=== PATIENT | female | born 1940 | race Caucasian/White ===

== ENCOUNTER → 2016-05-06 17:17 | Outpatient (CLI) | payer MEDICARE, MEDICAID | END | disposition home or self-care (01) | LOC: D.MAMMO 14:00 | DX: N63 Unspecified lump in breast (principal) ==

== ENCOUNTER → 2016-08-03 19:57 | Outpatient (CLI) | payer MEDICARE, MEDICAID | END | disposition home or self-care (01) | LOC: D.LABREF 19:57 | DX: R60.0 Localized edema (principal); R39.9 Unspecified symptoms and signs involving the genitourinary system ==

== ENCOUNTER 2017-08-24 10:50 | Outpatient (CLI) | payer OTHER ==
[~2017-08-24] VITALS: Ht 160 cm; Wt 81.8 kg
--- NOTE | ~2017-08-24 | HEMODYNAMI ---
PATIENT:MARY CHAVEZ MEDICAL RECORD: [id number] : 38 LOCATION:[facility] ADMISSION DATE: 08/24/17 Generatedon:08/24/201714:08 Patient name: MARY CHAVEZ Patient #: [id number] SSN: : Date of study: 08/24/2017 Page: Of Hemodynamic Procedure Report Patient Data Patient Demographics Procedure consent was obtained First Name: MARY Gender: Female Last Name: KATHY : 1940 [facility] Initial: CAROL Age: 77 year(s) Patient #: [id number] Race: Unknown Additional ID: [id number] Contact details Address: [address] State: [place] City: [facility] [place] Zip code: [address] Past Medical History Allergies Allergen Reaction Date Comments Reported Iodine 08/24/2017 Penicillins 08/24/2017 Codeine 08/24/2017 Sulfa drugs 08/24/2017 Aspirin 08/24/2017 Statins 08/24/2017 NSAIDs 08/24/2017 Admission Admission Data Admission Date: 08/24/2017 Admission Time: 10:50 Procedure Procedure Types Cath Procedure Peripheral Cath Diagnostic Procedure Cath Peripheral Ylirv-Purgyki-Aod-Off Procedure Description Procedure Date Procedure Date: 08/24/2017 Procedure Start Time: 13:50 Procedure End Time: 14:07 Procedure Staff Name Function Tree De Oliveira RT Scrub Cecil León MD Performing Physician Sanford Fernandes RN Nurse Crystal Moreira RT Monitor Procedure Data Cath Procedure Fluoroscopy Diagnostic fluoroscopy Total fluoroscopy Time: 0.8 time: 0.8 min min Diagnostic fluoroscopy Total fluoroscopy dose: 114 dose: 114 mGy mGy Contrast Material Contrast Material Type Amount (ml) Isovue 370 63 Entry Location Entry Primary Successful Side Size Upsize Upsize Entry Closure Succes sful Closure Location (Fr) 1 (Fr) 2 (Fr) Remarks Device Remarks Femoral Left 5 Fr Exoseal artery Estimated blood loss: 5 ml Diagnostic catheters Device Type Used For End Catheter Placement DIAGNOSTIC UF 5Fr Abdominal catheter ([id number]) aortogram with runoff Procedure Complications No complications Procedure Medications Medication Administration Route Dosage Oxygen etCO2 Nasal cannula 2 l/min Heparin Flush Bag added to field 2 bags (1000units/500ml NS) 0.9% NaCl I.V. 100 ml/hr Fentanyl I.V. 50 mcg Versed I.V. 1 mg Fentanyl I.V. 50 mcg Versed I.V. 1 mg Fentanyl I.V. 50 mcg Hemodynamics Rest Heart Rate: 81 (bpm) Snapshots Pre Cath Intra NCS Post Cath Vital Signs Time Heart Resp SPO2 etCO2 NIBP (mmHg) Rhythm Pain Sedation Rate (ipm) (%) (mmHg) Status Level (bpm) 13:30:20 87 16 98 29.2 151/82(125) NSR 0 (11) 10(A) , No pain 13:34:30 85 16 97 29.9 137/83(122) NSR 0 (11) 10(A) , No pain 13:38:45 88 17 96 29.9 132/72(107) NSR 0 (11) 10(A) , No pain 13:42:56 90 17 93 33.7 125/72(100) NSR 0 (11) 10(A) , No pain 13:47:06 93 18 95 23.9 127/72(93) NSR 0 (11) 10(A) , No pain 13:51:16 92 16 95 37.4 141/76(115) NSR 0 (11) 9(A) , No pain 13:55:28 90 17 95 40.4 128/74(107) NSR 0 (11) 9(A) , No pain 13:59:38 92 16 91 41.9 135/77(100) NSR 0 (11) 9(A) , No pain 14:03:50 96 17 95 38.2 128/70(95) NSR 0 (11) 10(A) , No pain 14:05:40 95 16 98 26.2 132/72(105) NSR 0 (11) 10(A) , No pain Medications Time Medication Route Dose Verified Delivered Reason Notes Effe ctiveness by by 13:40:26 Oxygen etCO2 2 Cecil Sanford Per Nasal l/min Mau Fernandes RN physician cannula 13:40:36 Heparin Flush added 2 Cecil Sanford used for Bag to bags Mau Fernandes sleeve ironer (1000units/500ml field NS) 13:40:45 0.9% NaCl I.V. 100 Cecil Sanford Per ml/hr Mau Fernandes RN physician 13:49:01 Fentanyl I.V. 50 Cecil Sanford for [facility] Mau Fernandes RN sedation 13:49:08 Versed I.V. 1 mg Cecil Sanford for Mau Fernandes RN sedation 13:51:06 Fentanyl I.V. 50 Cecil Sanford for [facility] Mau Fernandes RN sedation 13:51:11 Versed I.V. 1 mg Cecil Sanford for Mau Fernandes RN sedation 13:56:16 Fentanyl I.V. 50 Cecil Sanford for [facility] Mau Fernandes RN sedation Procedure Log Time Note 13:11:16 Sanford Fernandes RN sent for patient. Start room use. 13:11:17 Time tracking: Regular hours (M-F 7:00 - 5:00) 13:11:22 Plan of Care:Hemodynamics will remain stable., Cardiac rhythm will remain stable., Comfort level will be maintained., Respiratory function will remain adequate., Patient/ family verbilizes understanding of procedure., Procedure tolerated without complication., Recovers from procedure without complications.. 13:29:04 Patient received from Pre/Post Procedure Room to [facility] 2 Alert and oriented. Tansferred to table in Supine position. 13:29:07 Warm blankets applied, and quincy hugger turned on for patient comfort. 13:29:09 Correct patient and procedure confirmed by team. 13:29:12 Signed procedure consent form obtained from patient. 13:29:14 ECG and BP/O2 sat monitors applied to patient. 13:29:16 Vital chart was started 13:34:12 Full Disclosure recording started 13:36:03 Rhythm: sinus rhythm 13:36:08 Baseline sample Acquired. 13:36:16 H&P Date Dictated: 08/24/2017 Within 30 days and on chart., H&P Addendum completed by physician on day of procedure. (MUST COMPLETE FOR ALL OUTPATIENTS). 13:36:17 Pre-procedure instructions explained to patient. 13:36:17 Pre-op teaching completed and patient verbalized understanding. 13:36:21 Family in waiting room. 13:36:24 Patient NPO since Midnight. 13:36:38 Patient allergic to Iodine 13:37:09 Patient allergic to Penicillins 13:37:13 Patient allergic to Codeine 13:37:17 Patient allergic to Sulfa drugs 13:37:21 Patient allergic to Aspirin 13:37:30 Patient allergic to Statins 13:37:36 Patient allergic to NSAIDs 13:37:42 Is the patient allergic to Iodine/contrast media? Yes. 13:37:44 Was the patient premedicated? Yes 13:37:45 Is patient on blood thinner?No 13:37:47 Patient diabetic? No. 13:37:50 Previous problem with sedation/anesthesia? No ? 13:37:51 Snore? Yes 13:37:52 Sleep apnea? No 13:37:53 Deviated septum? No 13:37:54 Opens mouth fully? Yes 13:37:55 Sticks out tongue? Yes 13:37:57 Airway obstruction? No ? 13:37:59 Dentures? No ? 13:38:02 Pre procedure: right dorsailis pedis pulse 1+ Palpable, but thready & weak; easily obliterated 13:38:05 Pre procedure: left dorsailis pedis pulse 1+ Palpable, but thready & weak; easily obliterated 13:38:49 Patient pain scale 0/10 ?. 13:38:56 IV patent on arrival in left hand with 0.9% NaCl at [facility]. 13:38:59 Lab results completed and on chart. 13:39:05 Alarms reviewed by R. N. 13:39:05 Sharps counted by scrub and verified by R.N. 13:39:12 Bilateral groins area was prepped with chlora-prep and draped in sterile fashion 13:40:26 Oxygen 2 l/min etCO2 Nasal cannula was administered by Sanford Fernandes RN; Per physician; 13:40:36 Heparin Flush Bag (1000units/500ml NS) 2 bags added to field was administered by Sanford Fernandes RN; used for procedure; 13:40:45 0.9% NaCl 100 ml/hr I.V. was administered by Sanford Fernandes RN; Per physician; 13:45:55 Zero performed for pressure channel P1 13:46:18 Final Timeout: patient, procedure, and site verified with staff and physician. All members of the team are in agreement. 13:46:25 Left groin site verified by team. 13:46:29 Physical assessment completed. ASA score P 2 - A patient with mild systemic disease as per Cecil León MD. 13:46:32 Sedation plan: IV Moderate Sedation Medication:Versed, Fentanyl 13:46:38 Use device set CATH PACK 13:46:51 SHEATH Prelude 5Fr 0.035 ([id number]) opened to sterile field. 13:46:52 DIAGNOSTIC WIRE .035 260cm J wire ([id number]) opened to sterile field. 13:46:53 PERCUTANEOUS ENTRY 19GA needle opened to sterile field. 13:46:53 Bag Decanter (2002S) opened to sterile field. 13:46:55 ACIST Manifold (13169) opened to sterile field. 13:46:55 Medline Cath Pack ([id number]) opened to sterile field. 13:46:57 ACIST Hand Control (92564) opened to sterile field. 13:46:58 ACIST Syringe (98263) opened to sterile field. 13:49:01 Fentanyl 50 mcg I.V. was administered by Sanford Fernandes RN; for sedation; 13:49:08 Versed 1 mg I.V. was administered by Sanford Fernandes RN; for sedation; 13:50:35 Procedure started. 13:50:44 Local anesthetic to left femerol artery with Lidocaine 2% by Cecil León MD.INITIAL ACCESS ONLY 13:51:06 Fentanyl 50 mcg I.V. was administered by Sanford Fernandes RN; for sedation; 13:51:11 Versed 1 mg I.V. was administered by Sanford Fernandes RN; for sedation; 13:56:16 Fentanyl 50 mcg I.V. was administered by Sanford Fernandes RN; for sedation; 13:58:40 A 5 Fr sheath was inserted into the Left Femoral artery 13:59:52 A DIAGNOSTIC UF 5Fr catheter ([id number]) was advanced over the wire and used for Abdominal aortogram with runoff. 14:02:14 Catheter removed. 14:02:44 Sheath removed intact; hemostasis achieved with Exoseal to the Left Femoral artery. 14:03:17 Procedure ended.(Physican Out) 14:03:36 Fluoroscopy time 00.80 minutes. 14:03:41 Fluoroscopy dose: 114 mGy 14:03:41 Flurop Dose total: 114 14:04:06 Contrast amount:Isovue 370 63ml. 14:04:10 Sharps counted by scrub and verified by R.N. 14:04:11 Insertion/operative site no bleeding no hematoma. 14:04:14 Post-op/insertion site Left Femoral artery dressed using a 4 x 4 and Tegaderm. 14:04:19 Post left femerol artery:stable, clean and dry 14:04:20 Post Procedure Pulses reassessed and unchanged 14:04:24 Post-procedure physical assessment completed. ASA score P 2 - A patient with mild systemic disease as per Cecil León MD. 14:04:26 Post procedure rhythm: unchanged. 14:04:44 Estimated blood loss: 5 ml 14:04:46 Post procedure instruction explained to patient.Patient verbalizes understanding. 14:04:46 Patient needs reinforcement of post procedure teaching. 14:04:52 Procedure Complication : No complications 14:04:54 See physician's report for complete and final results. 14:05:33 EXOSEAL 5Fr (EX500) opened to sterile field. 14:05:39 Tegaderm 4 x 4 (1626W) opened to sterile field. 14:07:43 Procedure and supply charges have been captured, reviewed, submitted and are correct. 14:07:43 Vital chart was stopped 14:07:46 Report given to Pre/Post Procedure Room. 14:07:49 Patient transfered to Pre/Post Procedure Room with Stretcher. 14:07:56 Procedure ended. 14:07:56 Full Disclosure recording stopped 14:08:00 End room use (Document Last) Device Usage Item Name Manufacture Quantity Catalog Number Hospital Part Current M inimal Lot# / Charge Number Stock Stock Serial# Code SHEATH Prelude Merit 1 [id number] [id number] 109353 5 5Fr 0.035 Medical ([id number]) DIAGNOSTIC WIRE [address] [facility] 1 545108 333102 993710 241770 3 0 .035 260cm J wire (319183) PERCUTANEOUS Cook Medical 1 [id number] 010731 738712 5 ENTRY 19GA needle Bag Decanter Microtek 1 276266 04022 698969 5 () [employer] Inc. ACIST Manifold Acist 1 90297 032757 146920 571984 5 (09850) [employer] Medline Cath Cardinal 1 [id number] 780187 87359 728370 5 Pack Health ([id number]) ACIST Hand Acist 1 96758 519299 721192 149100 5 Control (72354) [employer] ACIST Syringe Acist 1 84637 514024 184837 638949 2 0 (46276) [employer] DIAGNOSTIC UF Cardinal 1 [id number] 682655 319253 043299 1 0 5Fr catheter Health ([id number]) EXOSEAL 5Fr Cardinal 1 EX500 060097 642829 607920 1 0 (EX500) Health Tegaderm 4 x 4 3M 1 1626W 440337 195057 214532 5 (1626W) Signature Audit [place] Stage Time Signature Unsigned Intra-Procedure 08/24/2017 Crystal 2:08:13 PM Counts RT(R) Signatures Monitor : Crystal Signature : Counts RT Date : Time : [place] [id number] [place] [address]
[2017-08-24] MEDS ORDERED: COREG6.25 MG PO (11:02)
[2017-08-24] MEDS ORDERED: HALCION0.25 MG PO (11:02)
[2017-08-24] MEDS ORDERED: METOLAZONE2.5 MG PO (11:03)
[2017-08-24] MEDS ORDERED: BACLOFEN20 M1 PO (11:03)
[2017-08-24] MEDS ORDERED: PATADAY2.5 ML EACH EYE (11:04)
[2017-08-24] MEDS ORDERED: COZAAR50 MG PO (11:04)
[2017-08-24] MEDS ORDERED: PREDNISONE20 MG PO (11:04)
[2017-08-24] MEDS ORDERED: VESICARE5 MG PO (11:05)
[2017-08-24 11:16] VITALS: BP 153/80; Ht 160 cm; Wt 81.8 kg
[2017-08-24 11:23] LABS: BASOPHILS 0.1 % (0-2); EOSINOPHILS 0.8 % (0-7); HEMATOCRIT 50.3 % (36.0-48.0); HEMOGLOBIN 17.4 g/dL (12-16); IMMATURE GRANULOCYTES 0.4 % (0-5); LYMPHOCYTES 30.6 % (15-50); MCH 30.9 pg (26.0-34.0); MCHC 34.6 g/dL (31.0-37.0); MCV 89.2 fL (80.0-100.0); MEAN PLATELET VOLUME 9.4 fL (7.4-10.4); MONOCYTES 10.7 % (2-11); NEUTROPHILS 57.4 % (40-80); PLATELET COUNT 511 10x3/uL (130-400); RBC 5.64 10x6/uL (4.00-5.40); WBC 19.6 10x3/uL (4.8-10.8)
[2017-08-24 11:29] LABS: ANION GAP 12.7 mmol/L (8-16); CALCIUM 9.9 mg/dL (8.5-10.1); CARBON DIOXIDE 30.8 mmol/L (21.0-32.0); CREATININE - SERUM 0.9 mg/dL (0.6-1.3)
[2017-08-24 11:31] LABS: POTASSIUM - SERUM 2.5 mmol/L (3.5-5.1)
== END 2017-08-24 17:15 | disposition home or self-care (01) ==
LOC: D.CATH 10:50
PROVIDERS: Internal Medicine Cardiovascular Disease
DX: M79.605 Pain in left leg (principal); M79.604 Pain in right leg; Z01.812 Encounter for preprocedural laboratory examination

== ENCOUNTER → 2017-10-13 10:53 | Outpatient (CLI) | payer OTHER ==
[2017-08-24 11:16] VITALS: BMI 31.9
[~2017-10-13 10:53] MED LIST: BACLOFEN20 M1 PO; COREG6.25 MG PO; COZAAR50 MG PO; HALCION0.25 MG PO; METOLAZONE2.5 MG PO; PATADAY2.5 ML EACH EYE; PREDNISONE20 MG PO; VESICARE5 MG PO
== END | disposition home or self-care (01) ==
LOC: D.MRI 10:53
DX: M54.5 Low back pain (principal)

== ENCOUNTER 2017-11-29 19:00 | Outpatient (CLI) | payer OTHER ==
[2017-08-24 11:16] VITALS: BMI 31.9
== END 2017-11-29 23:59 | disposition home or self-care (01) ==
LOC: D.MAMMO 19:00
DX: Z12.31 Encounter for screening mammogram for malignant neoplasm of breast (principal)